=== PATIENT | female | born 1945 | race Caucasian/White ===

== ENCOUNTER 2021-11-14 10:14 | Outpatient (CLI) | payer OTHER | END 2021-11-14 10:15 | disposition home or self-care (01) | LOC: CT 10:14 | PROVIDERS: ATTEND Physician Assistant Medical | DX: D50.9 Iron deficiency anemia, unspecified (principal); R63.4 Abnormal weight loss; R19.7 Diarrhea, unspecified; R19.01 Right upper quadrant abdominal swelling, mass and lump; K63.89 Other specified diseases of intestine; R91.8 Other nonspecific abnormal finding of lung field; K57.30 Diverticulosis of large intestine without perforation or abscess without bleeding; Z90.710 Acquired absence of both cervix and uterus | CPT/HCPCS: 74177; 82565 ==

== ENCOUNTER 2021-12-06 11:00 | Inpatient (IN) | payer MEDICARE ==
[2021-12-05 12:47] VITALS: BMI 24.5
[2021-12-11] MEDS ORDERED: Midazolam HCl 2 mg/2 ml Vial ONE (06:42)
[2021-12-11] MEDS ORDERED: Dexamethasone 4 mg/ml Vial ONE (06:42)
[2021-12-11] MEDS ORDERED: fentaNYL Citrate/PF 100 MCG/2 ML SYRINGE ONE ×2 (06:54→06:55)
[2021-12-11] MEDS ORDERED: SUGAMMADEX SODIUM 200 MG/2 ML VIAL ONE (06:55)
[2021-12-11] MEDS ORDERED: Bupivacaine HCl 0.5%/Epinephrine 1:200,000/PF 30 ml Vial ONE (07:11)
[2021-12-11] MEDS ORDERED: Rocuronium Bromide 10 MG/ML (10ML VIAL) ONE (07:11)
[2021-12-11] MEDS ORDERED: PROPOFOL 200 MG/20 ML VIAL ONE (07:11)
[2021-12-11] MEDS ORDERED: Glycopyrrolate 0.2 MG/ML 5 ML SYRINGE ONE (07:11)
[2021-12-11] MEDS ORDERED: Lidocaine 1% PF 5 ML VIAL ONE (07:11)
[2021-12-11] MEDS ORDERED: Phenylephrine 10 MG/ML VIAL ONE (07:11)
[2021-12-11] MEDS ORDERED: Ondansetron PF 4 MG/2 ML Vial ONE (07:11)
[2021-12-11] MEDS ORDERED: Ketorolac Tromethamine 30 MG/ML VIAL ONE (07:11)
[2021-12-11] MEDS ORDERED: Dexamethasone 20 MG/5 ML VIAL ONE ×2 (07:11)
[2021-12-11] MEDS ORDERED: cefOXitin 2 GM VIAL ONE (07:38)
[2021-12-11] MEDS ORDERED: Sodium Chloride 0.9% 100 ML ONE (07:38)
[2021-12-11] MEDS ORDERED: Ondansetron HCl/PF 4 MG/2 ML Vial IVP PRN (10:17)
[2021-12-11] MEDS ORDERED: Promethazine HCl 25 MG/ML VIAL IM PRN ×3 (10:17→10:41)
[2021-12-11] MEDS ORDERED: Promethazine HCl 25 MG/ML VIAL IVPB PRN (10:17)
[2021-12-11] MEDS ORDERED: Ondansetron PF 4 MG/2 ML Vial IVP PRN ×2 (10:34→10:41)
[2021-12-11] MEDS ORDERED: hydrALAZINE 20 MG/ML VIAL SLOW IVP PRN (10:34)
[2021-12-11] MEDS ORDERED: Zolpidem Tartrate 5 MG TAB PO PRN (10:41)
[2021-12-11] MEDS ORDERED: fentaNYL Citrate/PF 2,000 MCG in Sodium Chloride 0.9% 60 ML IV PRN (10:41)
[2021-12-11] MEDS ORDERED: Naloxone HCl 0.4 mg/ml Vial IV PRN (10:41)
[2021-12-11] MEDS ORDERED: diphenhydrAMINE 25 MG CAP PO PRN (10:41)
[2021-12-11] MEDS ORDERED: diphenhydrAMINE 50 MG/ML VIAL IM PRN (10:41)
[2021-12-11] MEDS ORDERED: Communication Order-Pharmacy FS SCH (10:45)
[2021-12-11] MEDS ORDERED: ceFAZolin 2 GM/Dextrose 50 ML 2 GM in Premix Bag 1 BAG IVPB SCH (10:45)
[2021-12-11] MEDS ORDERED: Promethazine HCl 25 MG/ML VIAL ONE (11:23)
[2021-12-11] MEDS ORDERED: metroNIDAZOLE 500 MG in Premix Bag 1 BAG IVPB SCH (12:00)
[2021-12-11] MEDS: CEFAZOLIN 2 GM in Sodium Chloride 0.9% 100 ML IVPB SCH ×2 (15:00→21:36)
[2021-12-11] MEDS: Sodium Chloride 0.9% 1,000 ML IV SCH ×2 (15:05→20:18)
[2021-12-11] MEDS: metroNIDAZOLE 500 MG in Premix Bag 1 BAG IVPB SCH (20:18)
[2021-12-11] MEDS: Famotidine 20 MG TAB PO SCH (20:19)
[2021-12-11] MEDS: Famotidine/PF 20 mg/2ml Vial SLOW IVP SCH (20:19)
[2021-12-12] MEDS: diphenhydrAMINE 50 MG/ML VIAL IVP PRN ×2 (01:22→05:48)
[2021-12-12] MEDS: Sodium Chloride 0.9% 1,000 ML IV SCH ×3 (01:26→20:48)
[2021-12-12] MEDS: metroNIDAZOLE 500 MG in Premix Bag 1 BAG IVPB SCH (03:02)
[2021-12-12 05:40] LABS: Anion Gap 13 mmol/L (10-20); BUN (Urea Nitrogen) 9 mg/dL (9.8-20.1); Calc. Creatinine Clearance 78 mL/min (70-130); Calcium 8.4 mg/dL (7.8-10.44); Carbon Dioxide 20 mmol/L (23-31); Chloride 109 mmol/L (98-107); Estimated GFR 93; Glucose 106 mg/dL (83-110); Potassium 3.8 mmol/L (3.5-5.1); Sodium 138 mmol/L (136-145)
[2021-12-12 05:46] LABS: #Basophils 0.1 thou/uL (0.0-0.2); #Lymphocytes 1.6 thou/uL (1.20-3.40); #Monocytes 0.6 thou/uL (0.11-0.59); #Neutrophils 7.9 thou/uL (1.40-6.50); %Basophils 0.7 % (0.0-1.0); %Eosinophils 0.3 % (0.0-10.0); %Lymphocytes 15.5 % (21.0-51.0); %Monocytes 6.1 % (0.0-10.0); %Neutrophils 77.5 % (42.0-75.0); Hemoglobin 8.3 g/dL (12.0-16.0); Mean Corpuscular Hemoglobin 25.1 pg (27.0-31.0); Mean Corpuscular Volume 83.6 fL (78.0-98.0); Mean Platelet Volume 7.1 fL (7.4-10.4); Platelet Count 497 thou/uL (130-400); RBC Distribution Width 19.6 % (11.5-14.5); White Blood Cell (WBC) Count 10.2 thou/uL (4.8-10.8)
[2021-12-12] MEDS ORDERED: Moisturizing Cream (Eucerin) 113 GM JAR TOP PRN (05:57)
[2021-12-12] MEDS: Enoxaparin Sodium 40 MG/0.4 ML SYRINGE SC SCH (08:13)
[2021-12-12] MEDS: Famotidine/PF 20 mg/2ml Vial SLOW IVP SCH ×2 (08:13→20:49)
[2021-12-12] MEDS: Famotidine 20 MG TAB PO SCH ×2 (09:49→20:49)
[2021-12-13] MEDS: Sodium Chloride 0.9% 1,000 ML IV SCH ×3 (05:06→20:50)
[2021-12-13] MEDS: Levothyroxine Sodium 50 MCG TAB PO SCH (05:06)
[2021-12-13] MEDS: Famotidine 20 MG TAB PO SCH ×2 (09:30→20:58)
[2021-12-13] MEDS: Enoxaparin Sodium 40 MG/0.4 ML SYRINGE SC SCH (09:30)
[2021-12-13] MEDS: Famotidine/PF 20 mg/2ml Vial SLOW IVP SCH ×2 (11:10→20:50)
[2021-12-13] MEDS ORDERED: Fentanyl 100 MCG/2 ML VIAL SLOW IVP PRN (13:03)
[2021-12-13] MEDS ORDERED: DC PCA Order Set 1 EACH FS ONE (13:05)
[2021-12-13] MEDS: Acetaminophen 500 MG TAB PO PRN (17:44)
[2021-12-14] MEDS: Acetaminophen 500 MG TAB PO PRN ×3 (00:03→21:29)
[2021-12-14] MEDS: Sodium Chloride 0.9% 1,000 ML IV SCH ×3 (05:11→22:05)
[2021-12-14] MEDS: Levothyroxine Sodium 50 MCG TAB PO SCH (06:04)
[2021-12-14] MEDS: Famotidine/PF 20 mg/2ml Vial SLOW IVP SCH ×2 (08:56→22:15)
[2021-12-14] MEDS: Famotidine 20 MG TAB PO SCH ×2 (09:32→21:30)
[2021-12-14] MEDS: Enoxaparin Sodium 40 MG/0.4 ML SYRINGE SC SCH (09:36)
[2021-12-15] MEDS: Levothyroxine Sodium 50 MCG TAB PO SCH (05:44)
[2021-12-15] MEDS: Famotidine 20 MG TAB PO SCH ×2 (07:57→21:00)
[2021-12-15] MEDS: Enoxaparin Sodium 40 MG/0.4 ML SYRINGE SC SCH (07:58)
[2021-12-15] MEDS: Acetaminophen 500 MG TAB PO PRN ×3 (07:58→20:59)
[2021-12-15] MEDS: Sodium Chloride 0.9% 1,000 ML IV SCH ×2 (08:12→15:42)
[2021-12-15] MEDS: Famotidine/PF 20 mg/2ml Vial SLOW IVP SCH ×2 (09:47→21:00)
[2021-12-16] MEDS: Sodium Chloride 0.9% 1,000 ML IV SCH ×2 (00:07→07:54)
[2021-12-16] MEDS: Levothyroxine Sodium 50 MCG TAB PO SCH (06:09)
[2021-12-16] MEDS: Famotidine/PF 20 mg/2ml Vial SLOW IVP SCH (08:24)
[2021-12-16 09:01] VITALS: TEMP 97.8
[2021-12-16] MEDS: Enoxaparin Sodium 40 MG/0.4 ML SYRINGE SC SCH (10:45)
[2021-12-16] MEDS: Famotidine 20 MG TAB PO SCH (10:45)
[2021-12-16] MEDS: Acetaminophen 500 MG TAB PO PRN (10:45)
[2021-12-16 12:14] VITALS: BP 113/73
== END 2021-12-16 15:26 | disposition home or self-care (01) | DRG 330 ==
LOC: SURG A 12-11 06:17 → SJJU 12-11 12:29
PROVIDERS: ADMIT Surgery; ATTEND Surgery
PROC: 0DTF0ZZ Resection of Right Large Intestine, Open Approach (ICD-10-PCS; principal; 2021-12-11)
PROC: 02HV33Z Insertion of Infusion Device into Superior Vena Cava, Percutaneous Approach (ICD-10-PCS; 2021-12-11)
DX: C18.2 Malignant neoplasm of ascending colon (principal); C77.2 Secondary and unspecified malignant neoplasm of intra-abdominal lymph nodes; E03.9 Hypothyroidism, unspecified; I10 Essential (primary) hypertension; M19.90 Unspecified osteoarthritis, unspecified site; Z96.651 Presence of right artificial knee joint; Z79.890 Hormone replacement therapy; Z79.82 Long term (current) use of aspirin; Z79.899 Other long term (current) drug therapy; Z90.49 Acquired absence of other specified parts of digestive tract; Z98.890 Other specified postprocedural states; Z88.5 Allergy status to narcotic agent
CPT/HCPCS: 36415; 36416; 36430; 71045; 80048; 85025; 86850; 86900; 86901; 88309; A4649; C1751; C1889; J0690; J0694; J1100; J1200; J1650; J1885; J2250; J2370; J2405; J2550; J2704; J2710; J3010; J3490; J7050; P9016; S0028

== ENCOUNTER 2021-12-06 11:14 | Outpatient (CLI) | payer MEDICARE ==
[2021-12-06 13:13] LABS: ALT (SGPT) Less than 6 U/L (8-55); AST (SGOT) 9 U/L (5-34); Albumin 3.5 g/dL (3.4-4.8); Alkaline Phosphatase 75 U/L (40-110); Anion Gap 20 mmol/L (10-20); BUN (Urea Nitrogen) 12 mg/dL (9.8-20.1); Bilirubin, Direct 0.2 mg/dL (0.1-0.3); Bilirubin, Total 0.4 mg/dL (0.2-1.2); Calc. Creatinine Clearance 0 mL/min (70-130); Calcium 8.8 mg/dL (7.8-10.44); Carbon Dioxide 19 mmol/L (23-31); Chloride 102 mmol/L (98-107); Estimated GFR 85; Globulin 3.3 g/dL (2.4-3.5); Glucose 101 mg/dL (83-110); Potassium 3.9 mmol/L (3.5-5.1); Protein, Total 6.8 g/dL (5.8-8.1); Sodium 137 mmol/L (136-145)
[2021-12-06 13:14] LABS: #Basophils 0.1 10x3/uL (0.0-0.2); #Eosinphils 0.1 10x3/uL (0.0-0.5); #Monocytes 0.9 10x3/uL (0.0-1.1); #Neutrophils 12.6 10x3/uL (1.5-8.4); %Basophils 0.4 % (0.0-2.0); %Eosinophils 0.4 % (0.0-6.0); %Lymphocytes 15.8 % (18.0-47.0); %Monocytes 5.7 % (0.0-10.0); %Neutrophils 76.5 % (40.0-75.0); Hemoglobin 8.3 g/dL (12.0-15.5); Mean Corpuscular Hemoglobin 22.2 pg (27.0-33.0); Mean Corpuscular Volume 76.5 fl (81.6-98.3); Mean Platelet Volume 9.1 fl (7.4-10.4); Platelet Count 632 10x3/uL (150-450); RBC Distribution Width 24.5 % (11.5-14.5); Red Blood Cell (RBC) Count 3.74 10x6/uL (3.90-5.03); White Blood Cell (WBC) Count 16.4 10x3/uL (3.5-10.5)
[2021-12-06 13:23] LABS: Anisocytosis SLIGHT = 6-15 cells (100X) (0-5/hpf); Hypochromia MODERATE=16-30 cells (100X) (0-5/hpf); Macrocytosis SLIGHT = 6-15 cells (100X) (0-5/hpf); Ovalocytes SLIGHT = 2-5 cells (100X) (0-1/hpf)
[2021-12-06 13:27] LABS: Platelet Morphology Comment Appears Increased
== END 2021-12-06 11:15 | disposition home or self-care (01) ==
LOC: LABBT 11:14
PROVIDERS: ATTEND Surgery
DX: Z01.818 Encounter for other preprocedural examination (principal); C18.9 Malignant neoplasm of colon, unspecified; Z20.822 Contact with and (suspected) exposure to COVID-19
CPT/HCPCS: 80053; 80076; 82378; 85025; 87811; 93005; 93010

== ENCOUNTER 2023-06-03 12:13 | Emergency (ER) | payer MEDICARE | END 2023-06-03 15:06 | disposition home or self-care (01) | LOC: ERS 12:13 | DX: S82.831A Other fracture of upper and lower end of right fibula, initial encounter for closed fracture (principal); I10 Essential (primary) hypertension; E11.9 Type 2 diabetes mellitus without complications; X58.XXXA Exposure to other specified factors, initial encounter | CPT/HCPCS: 29515 ==